=== PATIENT | female | born 1935 | race Caucasian/White ===

== ENCOUNTER 2017-03-30 23:24 | Emergency (ER) | payer MEDICARE ==
[~2017-03-30] VITALS: Ht 162.6 cm; Wt 78.2 kg
[~2017-03-30 23:24] MED LIST: ASPI81TA40 PO; AUGMENTIN PO; DICL100G20 TP; DILTIAZEM PO; FOL1 PO; HYDR1TAB69 PO; NAPR220T2 PO; PRE3 PO; PRI20 PO; RANI-323 PO; SPRN50T PO; ZLP10T PO; vitamin b12 IM
[2017-03-30 23:35] VITALS: BP 103/62; PULSE 75; RESP 16; O2SAT 92
--- NOTE | 2017-03-30 23:44 | ED.REPORT ---
HPI-Extremity Problem Lower Date of Service Mar 30, 2017 ED Provider: Dr. Valle The pt is an 81 y/o female with a hx of A-fib, HTN, and aneurysm who presents to the ED via EMS complaining of worsening dorsal left knee pain, onset 4 days ago. She denies chest pain and shortness of breath. 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 Nursing Notes Stated Complaint: L LEG PAIN BEHIND KNEE Chief Complaint: Extremity Trauma Nursing Notes Reviewed: Yes Allergies: Coded Allergies: apixaban (Verified Adverse Reaction, Unknown, Nausea,Vomiting, 03/30/17) Scheduled ([vitamin b12]) 100 MG IM qmonth ([cardizem XT]) 180 MG PO DAILY Amoxicillin-Clav 875-125 mg (Amox-Clav) 1 Tab Tab 1 TAB PO BID Aspirin-Expunged Drug, Do Not Renew! (Aspirin-Expunged Drug, Do Not Renew!) 81 Mg Tab.chew 162 MG PO DAILY Diclofenac-Expunged Drug, Do Not Renew! (Diclofenac-Expunged Drug, Do Not Renew! ) 100 Gm Gel..gm. 100 GM TP PRN for arthritis Estrogens Conj-Expunged Drug, Do Not Renew! (Premarin-Expunged Drug, Do Not Renew!) 0.3 Mg Tablet 0.3 MG PO DAILY Folic Acid-Expunged Drug, Do Not Renew! (Folic Acid-Expunged Drug, Do Not Renew! ) 1 Mg Tablet 1 MG PO 2XW Hydrocod/APAP-Expunged, Do Not Renew! (VICODIN 5/500-Expunged Drug, Do Not Renew ) 1 Each Tablet 1-2 EACH PO Q6 as needed for pain Naproxen Sodium-Expunged Drug, Do Not Renew! (Naproxen Sodium-Expunged Drug, Do Not Renew!) 220 Mg Tablet 220 MG PO BID as needed for arthritis Omeprazole-Expunged Drug, Do Not Renew! (Omeprazole-Expunged Drug, Do Not Renew! ) 20 Mg Capcr 20 MG PO PRN for heartburn/GERD Ranitidine Hcl-Expunged Drug, Do Not Renew! (Acid Pulp Tester 150-Expunged Drug, Do Not Renew!) 150 Mg Tablet 150 MG PO PRN acid reflux Spironolactone-Expunged Drug, Do Not Renew! (Spironolactone-Expunged Drug, Do Not Renew!) 50 Mg Tablet 25 MG PO BID Zolpidem-Expunged Drug, Do Not Renew! (Zolpidem-Expunged Drug, Do Not Renew!) 10 Mg Tab 10 MG PO HS General Time Seen by MD: 23:43 Chief Complaint Knee injury left Hx Obtained From: Patient Arrived By: Ambulance Onset Occurred: 4 days ago Symptom Duration: Since onset Location: : Knee left Quality: Painful Severity: Current: Severe Severity: Maximum: Severe Recent Healthcare: No recent doctor visit Past Medical History Past Medical History Aneurysm Reports: Hypertension Reports: Atrial fibrillation Past Surgical History Bladder Reports: Hysterectomy, Tonsillectomy Smoking History Unknown if Ever Smoker Ambulatory Status Independent Review of Systems Musculoskeletal: Reports: Joint pain (left knee) Complete sys rev & neg: except as marked. Respiratory: Denies: Shortness of breath Cardiovascular: Denies: Chest pain Physical Exam Initial Vital Signs Vital Signs (First) Date Time Temp Pulse Resp B/P Pulse Ox O2 Delivery O2 Flow Rate FiO2 03/30/17 23:35 37.3 75 16 103/62 92 Room Air Initial VS: Reviewed Head / Eyes: Atraumatic, Normocephalic Neck: Supple, Non-tender, Full range of motion Respiratory: Breath sounds normal, Clear to auscultation, No respiratory distress Cardiovascular: Regular rate & rhythm, Heart sounds normal, Intact distal pulses Abdomen / GI: Soft, Non-tender, No guarding, No rebound, No distention Upper Extremities: Vascular intact, Neuro intact, No swelling, No tenderness Skin: Warm, Dry, No cyanosis Neurologic: Alert, Oriented, Nonfocal Lower Extremity / Pelvis / MS: Atraumatic, No swelling, No deformity, Neurologic intact, Vascular intact Tender left posterior knee. Strong pulse. Ankle / Foot: Atraumatic, Full range of motion, No swelling, No erythema, Non- tender, No deformity, Neurologic intact, Vascular intact General/Constitutional: Awake, Alert, Well appearing, Cooperative Interpretation & Diagnostics US DVT No evidence of deep venous thrombosis of the left lower extremity. Redding's cyst measuring 4 x 3.2 x 1cm Signed by Dr. Deepak Coyne 03/31/17 00:48 Lab Results Interpretation Result Diagram: 03/30/17 2355 03/30/17 2355 Test 03/30/17 23:55 White Blood Count 11.6th/mm3 (3.8-10.1) Red Blood Count 4.76mil/mm3 (3.90-5.20) Hemoglobin 14.6g/dL (12.0-15.6) Hematocrit 42.1% (35.0-46.0) Mean Corpuscular Volume 88.4fL (81-100) Mean Corpuscular Hemoglobin 30.7pg (27.0-35.0) Mean Corpuscular Hemoglobin Concent 34.7% (32.0-37.0) Red Cell Distribution Width 13.7% (12.3-15.4) Platelet Count 222bil/L (150-400) Neutrophils (%) (Auto) 74.7% (40-74) Lymphocytes (%) (Auto) 11.4% (14-46) Monocytes (%) (Auto) 12.5% (4-12) Eosinophils (%) (Auto) 1.0% (0-5) Basophils (%) (Auto) 0.3% (0-3) Hold Purple Top Tube Received (Received) D-Dimer 0.67mg/L FEU (<0.50) Hold Blue Top Tube Received (Received) Sodium Level 132mEq/L (134-144) Potassium Level 4.5mEq/L (3.5-5.2) Chloride Level 96mEq/L (97-108) Carbon Dioxide Level 19mmol/L (18-29) Blood Urea Nitrogen 17mg/dL (8-27) Creatinine 0.62mg/dL (0.57-1.00) Estimat Glomerular Filtration Rate 132mL/min (>59) Glucose Level 125mg/dL (60-99) Calcium Level 9.6mg/dL (8.5-10.1) Total Bilirubin 0.6mg/dL (0.0-1.2) Aspartate Amino Transf (AST/SGOT) 11U/L (0-50) Alanine Aminotransferase (ALT/SGPT) 7U/L (0-32) Alkaline Phosphatase 67U/L (25-165) Total Protein 7.3g/dL (6.4-8.4) Albumin 4.2g/dL (3.4-5.0) Hold Parmelee Top Tube Received (Received) Re-Eval/Medical Decision Med Decision/Clinical Course No signs of DVT on ultrasound. Bounding pedal pulses and warm foot. Acute arterial insufficiency highly unlikely. No risk factors for dissection and the pain is contained over her popliteal fossa. Redding cyst identified in the Redding' s cyst was exquisitely tender. No hematoma or signs of infection. Oral Huntington was given with properly for pain. We will discharge home with close outpatient follow-up and a short course of Huntington for the pain. Source of Hx: Old records Re-Evaluation/Progress : Time of Eval: 00:57 Re-Evaluation/Progress Note: Rechecked pt. Discussed lab results, imaging results, diagnosis and plan to discharge. Pt understands and agrees with the plan. F/U instruction and RTER warning given. All questions addressed. Counseled Regarding: Diagnosis, Lab results, Need for follow-up, When/why to return to ED Discharge & Departure Impression: Primary Impression: Redding's cyst Laterality: right Qualified Code: M71.21 - Synovial cyst of popliteal space [Redding], right knee Disposition: Home Discharge Condition All VS Reviewed: Yes Condition: Stable Patient Instructions: Bakers Cyst (ED) Additional Instructions: Your imaging results show Redding's cyst. Wear the knee immobilizer and use your cane. I recommend you continue taking Xarelto. Take 1-2 Huntington every 6 hours as needed for pain. Do not drive or drink alcohol or consume acetaminophen while taking the Huntington. Increase fiber in your diet to prevent constipation. Follow up with Dr. Lowry for further evaluation. If you develop any new or worsening pain or any other concerning symptoms come back to the emergency department. It was very nice meeting you. Referrals: Michelle Rivers (PCP) Lupillo Lowry MD Attestation Portions of this note were transcribed by Jim Lopes. I,, personally performed the history,physical exam and medical decision-making;I reviewed and confirmed the accuracy of the information in the transcribed note. Signed by Lissett Holley. 03/31/17 copies to: Lupillo Lowry MD, Todd P DO Mar 30, 2017 23:44 Jim Lopes Mar 30, 2017 23:56
[2017-03-31] MEDS ORDERED: HYDROcodone-APAP 5-325 mg Tablet PO ONE
[2017-03-31 00:04] LABS: BASOPHILS % (AUTO) 0.3 % (0-3); MONOCYTES % (AUTO) 12.5 % (4-12); Mean Corpuscular Hemoglobin 30.7 pg (27.0-35.0); Mean Corpuscular Volume 88.4 fL (81-100); NEUTROPHILS % (AUTO) 74.7 % (40-74); Platelet Count 222 bil/L (150-400)
[2017-03-31] MEDS ORDERED: _HYDROcodone/APAP 5-325 mg Tablet PO PRN (01:25)
[2017-03-31 01:41] VITALS: BP 90/67; PULSE 67; RESP 18; O2SAT 95
--- NOTE | 2017-03-31 07:10 | DRSVH ---
PROCEDURE: US VEINOUS LEG DUPLEX UNILATERAL, LEFT INDICATIONS: hx of afib, left leg pain TECHNIQUE: Real-time imaging, as well as color and pulse Doppler interrogation, were performed of the lower extr emity deep veins from the inguinal ligament to the popliteal fossa. COMPARISON: None. FINDINGS: The deep veins are normally compressible, and free of intraluminal thrombus. Color and pu lse Doppler demonstrate normal phasic intraluminal flow. There is normal augmentation response to di stal compression maneuver. There is a 4.2 cm left popliteal mass most consistent with a Redding's cyst . IMPRESSION: No sonographic evidence of venous thrombus in the left lower extremity. Dictated by: Lisandro West M.D. on 03/31/2017 at 7:07 Approved by: Lisandro West M.D. on 03/31/2017 at 7:08
== END 2017-03-31 02:44 | disposition home or self-care (01) ==
LOC: SED 23:24
DX: M71.22 Synovial cyst of popliteal space [Baker], left knee (principal); I10 Essential (primary) hypertension; I48.91 Unspecified atrial fibrillation; Z79.01 Long term (current) use of anticoagulants; Z79.82 Long term (current) use of aspirin; Z88.8 Allergy status to other drugs, medicaments and biological substances